=== PATIENT | female | born 1960 | race Caucasian/White ===

== ENCOUNTER → 2017-07-28 | Outpatient (CLI) | payer BC ==
[~2017-07-28] MED LIST: CHOL200024 PO; SPIR25TA3 PO
[2017-07-28 11:51] LABS: BASOPHILS # (AUTO) 0.03 x10^3/uL (0-0.1); BASOPHILS % (AUTO) 0 % (0-1); EOSINOPHILS # (AUTO) 0.29 x10^3/uL (0-0.4); EOSINOPHILS % (AUTO) 5 % (1-7); LYMPHOCYTES # (AUTO) 2.15 x10^3/uL (1-3.4); LYMPHOCYTES % (AUTO) 34 % (22-44); MD NO; MEAN CORPUSCULAR HEMOGLOBIN 31.6 pg (27.0-34.8); MEAN CORPUSCULAR HGB CONC 34.3 g/dL (32.4-35.8); MEAN CORPUSCULAR VOLUME 92.2 fL (80-100); MEAN PLATELET VOLUME 7.7 fL (7.4-10.4); MONOCYTES # (AUTO) 0.34 x10^3/uL (0.2-0.8); MONOCYTES % (AUTO) 5 % (2-9); NEUTROPHILS # (AUTO) 3.53 x10^3/uL (1.8-6.8); NEUTROPHILS % (AUTO) 56 % (42-75); PLATELET COUNT 353 x10^3/uL (130-400); RED BLOOD COUNT 4.43 x10^6/uL (3.82-5.3); RED CELL DISTRIBUTION WIDTH 13.4 % (9.6-15.2)
[2017-07-28 12:01] LABS: ALANINE AMINOTRANSFERASE 29 U/L (12-78); ALBUMIN 4.2 g/dL (3.4-5.0); ANION GAP 6 mmol/L (5-15); CALCIUM 9.5 mg/dL (8.5-10.1); CHLORIDE 106 mmol/L (98-107); CREATININE 0.81 mg/dL (0.55-1.02)
[2017-07-28 12:09] LABS: ALKALINE PHOSPHATASE 71 U/L (45-117); BILIRUBIN,TOTAL 0.4 mg/dL (0.2-1.0); TOTAL PROTEIN 8.2 g/dL (6.4-8.2)
== END ==
LOC: STAR 10:25
PROVIDERS: ATTEND Obstetrics & Gynecology Female Pelvic Medicine and Reconstructive Surgery
DX: Z01.818 Encounter for other preprocedural examination (principal)
CPT/HCPCS: 36415; 71020; 80053; 85025; 93005

== ENCOUNTER 2017-08-08 10:53 | Day surgery (SDC) | payer BC ==
[~2017-08-08] VITALS: Ht 167.6 cm; Wt 105.3 kg
[~2017-08-08 10:53] MED LIST changes: +BUPIVACAINE/PF 0.25% ONE; +EPINEPHRINE 1 MG/ML, 1ML ONE
[2017-08-08] MEDS ORDERED: LIDOCAINE 1%, 2ML ONE (11:07)
[2017-08-08] MEDS ORDERED: LACTATED RINGERS 1,000 ML IV SCH ×2 (11:10→16:54)
[2017-08-08 11:16] VITALS: BP 154/92
[2017-08-08] MEDS ORDERED: THROMBIN 5,000 UNIT VIAL TP ONE (12:53)
[2017-08-08] MEDS ORDERED: FLUORESCEIN SODIUM 500 MG/5 ML ONE (12:53)
[2017-08-08] MEDS ORDERED: MIDAZOLAM 1 MG/ML, 2ML ONE (13:08)
[2017-08-08] MEDS ORDERED: FENTANYL PF 250 MCG/5ML ONE (13:08)
[2017-08-08] MEDS ORDERED: GLYCOPYRROLATE 0.2MG/1ML, 5ML ONE (13:55)
[2017-08-08] MEDS ORDERED: CEFAZOLIN 1,000 MG ONE (13:55)
[2017-08-08] MEDS ORDERED: PROPOFOL 10 MG/ML, 20ML ONE (13:55)
[2017-08-08] MEDS ORDERED: DEXAMETHASONE 4 MG/ML, 1ML ONE (13:55)
[2017-08-08] MEDS ORDERED: LIDOCAINE-MPF 2% ,5ML ONE (13:55)
[2017-08-08] MEDS ORDERED: ROCURONIUM 10 MG/ML,10ML ONE (13:55)
[2017-08-08] MEDS ORDERED: LIDOCAINE GEL 2%, 5ML ONE (13:55)
[2017-08-08] MEDS ORDERED: SUCCINYLCHOLINE 20 MG/ML, 10ML ONE (13:55)
[2017-08-08] MEDS ORDERED: ONDANSETRON 2MG/ML, 2ML ONE (13:55)
[2017-08-08] MEDS ORDERED: NEOSTIGMINE 1 MG/ML, 10ML ONE (13:55)
[2017-08-08] MEDS ORDERED: NEOMY/POLYMYXIN B GU IRR. 1 ML IRRIG ONE (14:15)
[2017-08-08] MEDS ORDERED: ATROPINE SYRINGE 0.1 MG/ML, 10ML ONE (15:06)
[2017-08-08] MEDS ORDERED: ACETAMINOPHEN 325 MG TABLET PO PRN (15:30)
[2017-08-08] MEDS ORDERED: ONDANSETRON 2MG/ML, 2ML IVPush PRN ×2 (15:30→17:00)
[2017-08-08] MEDS ORDERED: hydrALAzine 20 MG/ML, 1ML IV PRN (15:30)
[2017-08-08] MEDS ORDERED: OXYcodone 5 MG/5 ML ORAL.SOL UDC PO PRN (15:30)
[2017-08-08] MEDS ORDERED: MIDAZOLAM 1 MG/ML, 2ML IV PRN (15:30)
[2017-08-08] MEDS ORDERED: METOCLOPRAMIDE 5 MG/ML, 2ML IV PRN (15:30)
[2017-08-08] MEDS ORDERED: MEPERIDINE/PF 25MG/0.5ML IVPush PRN (15:30)
[2017-08-08] MEDS ORDERED: FENTANYL PF 100 MCG/2ML IV PRN (15:30)
[2017-08-08] MEDS ORDERED: LABETALOL 5MG/ML, 20ML IV PRN (15:30)
[2017-08-08] MEDS ORDERED: PROMETHAZINE 25 MG/ML, 1ML IV PRN (15:30)
[2017-08-08] MEDS ORDERED: DIAZEPAM 5 MG/ML, 2ML IVPush PRN (15:30)
[2017-08-08] MEDS ORDERED: LORazepam 2 MG/ML, 1ML IVPush PRN (15:30)
[2017-08-08] MEDS ORDERED: ALBUTEROL/IPRATROPIUM 2.5MG/0.5MG, 3 ML NPPB PRN (15:30)
[2017-08-08] MEDS ORDERED: BUPIVACAINE/PF 0.25% ONE (16:35)
[2017-08-08] MEDS ORDERED: HYDROcodone/APAP 5/325 TABLET PO PRN (17:00)
[2017-08-08] MEDS ORDERED: PROMETHAZINE 25 MG SUPP PR ONE (17:00)
[2017-08-08] MEDS ORDERED: IBUPROFEN 600 MG TABLET PO PRN (17:00)
[2017-08-08] MEDS ORDERED: ACETAMINOPHEN 650 MG/20.3 ML UDC ONE (17:14)
[2017-08-08] MEDS ORDERED: OXYcodone 5 MG/5 ML ORAL.SOL UDC ONE (17:15)
[2017-08-08] MEDS ORDERED: HYDROmorphone 2 MG/ML, 1ML ONE (17:26)
[2017-08-08] MEDS: HYDROmorphone 1 MG/ML, 1ML IV PRN ×2 (17:27→17:40)
== END 2017-08-08 22:41 | disposition home or self-care (01) ==
LOC: OUT 10:53 → 4NOR 19:14 → OUT 22:41
PROVIDERS: ATTEND Obstetrics & Gynecology Female Pelvic Medicine and Reconstructive Surgery
DX: N81.3 Complete uterovaginal prolapse (principal); N95.0 Postmenopausal bleeding; N39.3 Stress incontinence (female) (male); N84.0 Polyp of corpus uteri; Z90.49 Acquired absence of other specified parts of digestive tract; Z83.3 Family history of diabetes mellitus
CPT/HCPCS: 57288; 58542; 88305; 88307; C1771; C1781; J0171; J0330; J0461; J0690; J1100; J1170; J2250; J2405; J2704; J2710; J3010; J3490; J7120